=== PATIENT | female | born 1970 | race Two or more races ===

== ENCOUNTER 2016-12-09 14:44 | Emergency (ER) | payer MEDICAID ==
[~2016-12-09] VITALS: Ht 152.4 cm; Wt 54.4 kg
--- NOTE | 2016-12-09 15:00 | NUR ---
AAOX3 BIB RA C/O PAIN TO R FA S/P FALL AT WORK. RR IS EVEN AND UNLABORED WITH NAD NOTED. [facility] WNL. AWAITING MD FOR EVAL.
[2016-12-09] MEDS ORDERED: HYDROCODONE/APAP 10/325MG 1 EA TABLET ONE (15:13)
[2016-12-09] MEDS ORDERED: IBUPROFEN 400 MG TABLET ONE (15:14)
[2016-12-09] MEDS ORDERED: ONDANSETRON 4 MG TAB.RAPDIS ONE (15:14)
[2016-12-09] MEDS ORDERED: IBUPROFEN 400 MG TABLET PO ONE (15:30)
[2016-12-09] MEDS ORDERED: ONDANSETRON 4 MG TAB.RAPDIS SL ONE (15:30)
[2016-12-09] MEDS ORDERED: HYDROCODONE/APAP 10/325MG 1 EA TABLET PO ONE (15:30)
[2016-12-09] MEDS ORDERED: PROPOFOL 200 MG/20 ML VIAL IV ONE ×2 (17:00→18:00)
[2016-12-09] MEDS ORDERED: PROPOFOL 20 ML IV ONE (17:25)
[2016-12-09 18:13] VITALS: BP 124/75
--- NOTE | 2016-12-09 18:13 | NUR ---
IV removed. Catheter intact and site benign. Pressure and 4x4 applied to site. No bleeding noted.Patient discharged to home in stable condition. Written and verbal after care instructions given. Patient verbalizes understanding of instruction.
== END 2016-12-09 18:15 | disposition home or self-care (01) ==
LOC: ER 14:46
DX: S52.611A Displaced fracture of right ulna styloid process, initial encounter for closed fracture (principal); S52.511A Displaced fracture of right radial styloid process, initial encounter for closed fracture; W18.39XA Other fall on same level, initial encounter; Y93.89 Activity, other specified; Y92.89 Other specified places as the place of occurrence of the external cause; Y99.0 Civilian activity done for income or pay
CPT/HCPCS: 73090-TC; 73110; A4606; J2704; J7030; Q0162; Z7610